=== PATIENT | female | born 1995 | race Caucasian/White ===

== ENCOUNTER 2019-06-25 06:56 | Day surgery (SDC) | payer OTHER ==
[~2019-06-25] VITALS: Ht 162.6 cm; Wt 73.0 kg
[2019-06-25 07:38] VITALS: BP 109/71; PULSE 81; TEMP 97.1
[2019-06-25 09:10] VITALS: BP 98/68; PULSE 85; TEMP 98.5
--- NOTE | 2019-06-25 09:10 | NUR ---
Patient arrives back to [facility] drowsy, denies pain or nausea. Patient ambulates from cart to chair with standby assist and without any complications. Patient monitor applied, vitals stable.
--- NOTE | 2019-06-25 09:15 | NUR ---
Patient given juice and muffin at this time.
--- NOTE | 2019-06-25 09:20 | NUR ---
Dr Martinez into see patient at this time.
[2019-06-25 09:25] VITALS: BP 86/68; PULSE 71
[2019-06-25 09:40] VITALS: BP 97/66; PULSE 73
--- NOTE | 2019-06-25 09:40 | NUR ---
Patient tolerates juice and muffin without any nausea. Denies pain. Vitals stable. Patient reports she is ready to go home.
--- NOTE | 2019-06-25 09:50 | NUR ---
Dismissal instructions gone over with patient and patient's freind. Both verbalize understanding and all questions answered.
[2019-06-25 09:55] VITALS: BP 90/52; PULSE 68
--- NOTE | 2019-06-25 10:00 | NUR ---
Patient dismissed to patient enterance to private vehicle via wheelchair without any complications. Patient leaves thanking staff for services.
== END 2019-06-25 10:00 | disposition home or self-care (01) ==
LOC: SDCO 06:56
DX: K92.1 Melena (principal); K62.89 Other specified diseases of anus and rectum; K59.00 Constipation, unspecified; Z88.5 Allergy status to narcotic agent; Z88.8 Allergy status to other drugs, medicaments and biological substances
CPT/HCPCS: J2250; J2405; J3010; J7030